=== PATIENT | female | born 1980 | race Hispanic/Latino ===

== ENCOUNTER 2018-04-29 08:44 | Emergency (ER) | payer OTHER, SELFPAY ==
--- NOTE | 2018-04-29 10:19 | RAD ---
FOUR VIEWS LEFT KNEE: COMPARISON: None. HISTORY: Left knee pain. FINDINGS: Four views left knee show no evidence of acute fracture or dislocation. No degenerative changes are seen. No knee effusion is present. IMPRESSION: Unremarkable exam. POS: [facility]
== END 2018-04-29 09:45 | disposition home or self-care (01) ==
LOC: ERS 08:44
DX: M71.9 Bursopathy, unspecified (principal); E11.9 Type 2 diabetes mellitus without complications

== ENCOUNTER 2019-07-15 10:13 | Outpatient (CLI) | payer OTHER ==
--- NOTE | 2019-07-15 10:50 | ULT ---
Exam: Right upper quadrant ultrasound: HISTORY: Upper abdominal pain. COMPARISON: None FINDINGS: Liver: Within normal limits Gallbladder: There is a single mobile echogenic focus with posterior shadowing compatible with a gall bladder calculus measuring 1.7 cm. No gallbladder wall thickening or pericholecystic fluid is seen. Common bile duct: Common duct is dilated measuring 0.8 cm in diameter. Pancreas: Limited visualized portions of the pancreas demonstrate a normal sonographic appearance. Right kidney: Right kidney demonstrates a normal sonographic appearance. The right kidney measures 1 0.4 cm in length. IVC: The visualized IVC demonstrates a normal sonographic appearance. IMPRESSION: 1. Dilated extrahepatic common duct which measures 0.8 cm in diameter. No intrahepatic biliary ductal dilatation is seen. Etiology for the common duct dilatation is uncertain based on this exam. 2. Cholelithiasis with single gallbladder calculus seen.
== END 2019-07-15 10:14 | disposition home or self-care (01) ==
LOC: BICULT 10:13
DX: R10.10 Upper abdominal pain, unspecified (principal); K80.20 Calculus of gallbladder without cholecystitis without obstruction; K83.8 Other specified diseases of biliary tract
CPT/HCPCS: 76705